=== PATIENT | male | born 1985 | race Caucasian/White ===

== ENCOUNTER 2020-04-30 07:45 | Outpatient (CLI) | payer BC | END 2020-04-30 07:46 | disposition home or self-care (01) | LOC: CSHCT 07:45 | PROVIDERS: ATTEND Thoracic Surgery (Cardiothoracic Vascular Surgery) | DX: I71.2 Thoracic aortic aneurysm, without rupture (principal); T84.9XXA Unspecified complication of internal orthopedic prosthetic device, implant and graft, initial encounter; Z95.4 Presence of other heart-valve replacement; Q67.6 Pectus excavatum | CPT/HCPCS: 71275 ==